=== PATIENT | female | born 1990 | race Caucasian/White ===

== ENCOUNTER 2018-05-09 12:02 | Emergency (ER) | payer OTHER ==
[~2018-05-09] VITALS: Ht 160 cm; Wt 65.8 kg
[2018-05-09] MEDS ORDERED: LEXAPRO20 MG PO (12:14)
[2018-05-09 13:05] LABS: URINE BILIRUBIN NEGATIVE (Negative); URINE BLOOD TRACE (Negative); URINE CLARITY CLEAR; URINE COLOR YELLOW; URINE GLUCOSE-RANDOM NEGATIVE (Negative); URINE KETONES NEGATIVE (Negative); URINE PROTEIN NEGATIVE (Negative); URINE UROBILINOGEN 0.2 E.U./dl (0.2-1.0)
[2018-05-09] MEDS ORDERED: MACROBID 100 M100 M1 PO (13:15)
[2018-05-09 13:22] VITALS: BP 124/74
[2018-05-09 20:25] LABS: URINE SPECIFIC GRAVITY > 1.030 (1.005-1.030)
[2018-05-09 20:26] LABS: URINE NITRITE-REFLEX POSITIVE (Negative)
[2018-05-09 20:27] LABS: URINE LEUKOCYTES-REFLEX 1+ (Negative)
[2018-05-09 20:50] LABS: SQUAMOUS 4-10 Moderate /LPF (0-3)
[2018-05-09 20:51] LABS: BACTERIA-REFLEX >30 Many /HPF (None Seen); CASTS None Seen /LPF (None Seen); CRYSTALS None Seen /LPF (None Seen); URINE RBC 0-2 Rare /HPF (0-2); URINE WBC-REFLEX >25 Many /HPF (0-5)
== END 2018-05-09 13:24 | disposition home or self-care (01) ==
LOC: M.ERS 12:02
PROVIDERS: Nurse Practitioner Family
DX: N30.90 Cystitis, unspecified without hematuria (principal); F32.9 Major depressive disorder, single episode, unspecified

== ENCOUNTER 2019-09-17 04:14 | Emergency (ER) | payer BC, OTHER ==
[~2019-09-17] VITALS: Ht 160 cm; Wt 70.3 kg
[~2019-09-17 04:14] MED LIST: LEXAPRO20 MG PO; MACROBID 100 M100 M1 PO
[2019-09-17] MEDS ORDERED: SPIRONOLACTONE100 M1 PO (04:23)
[2019-09-17] MEDS ORDERED: ATIVAN0.5 M1 PO (04:23)
[2019-09-17] MEDS ORDERED: PROMETH-CODEIN 65 ML PO (05:09)
[2019-09-17] MEDS ORDERED: PREDNISONE50 MG PO (05:09)
[2019-09-17 05:13] LABS: INFLUENZA A ANTIGEN Negative (Negative); INFLUENZA B ANTIGEN Negative (Negative)
[2019-09-17 05:17] VITALS: BP 119/75
== END 2019-09-17 05:17 | disposition home or self-care (01) ==
LOC: M.ERS 04:14
PROVIDERS: Emergency Medicine
DX: J06.9 Acute upper respiratory infection, unspecified (principal); J04.0 Acute laryngitis; F32.9 Major depressive disorder, single episode, unspecified

== ENCOUNTER → 2020-01-13 | Outpatient (CLI) | payer BC, OTHER ==
[~2020-01-13] MED LIST changes: +ATIVAN0.5 M1 PO; +PREDNISONE50 MG PO; +PROMETH-CODEIN 65 ML PO; +SPIRONOLACTONE100 M1 PO
== END ==
LOC: M.LAB 20:09
DX: R05 Cough (principal)

== ENCOUNTER 2021-07-25 16:27 | Emergency (ER) | payer OTHER ==
[~2021-07-25] VITALS: Ht 160 cm; Wt 77.1 kg
[2021-07-25] MEDS ORDERED: DULOXETINE HCL60 MG PO (16:36)
[2021-07-25] MEDS ORDERED: AUGMENTIN 875-1 EACH PO (18:12)
[2021-07-25 18:37] VITALS: BP 145/79
== END 2021-07-25 18:38 | disposition home or self-care (01) ==
LOC: M.ERS 16:27
DX: S01.511A Laceration without foreign body of lip, initial encounter (principal); F32.9 Major depressive disorder, single episode, unspecified; Z79.899 Other long term (current) drug therapy; W21.01XA Struck by football, initial encounter; Y93.89 Activity, other specified; Y92.89 Other specified places as the place of occurrence of the external cause; Y99.8 Other external cause status